=== PATIENT | male | born 1955 | race Caucasian/White ===

== ENCOUNTER 2020-06-01 08:58 | Outpatient (CLI) | payer OTHER, SELFPAY ==
--- NOTE | 2020-06-21 09:34 | WPDHOMESLEEP ---
Sleep Study - Home Unattended Date of Study: 06/01/20 Ordering Provider: Vangie Jackson NP; primary care is Dr. Briseno Interpreting Provider: Linda Riley MD Home Sleep Study Type: Apnea Link Air Height: 1.8 m Weight: 110.677 kg Body Mass Index: 34.0 Neck Circumference (inches): 17 [place]: 2 Reason for Sleep Study Fatigue, poor sleep Sleep History Jeffry Bolton is a 65 year old man with Hypertension. He frequently snores at night and it is loud enough that others complain about it. He occasionally awakens at night with heartburn, belching or coughing. He rarely awakens from sleep feeling short of breath. he occasionally has trouble sleeping with a cold. He rarely wakes up gasping for breath at night. He does not sweat excessively night. He does not notice his heart pounding irregularly night. He occasionally falls asleep during the day never involuntarily, never while driving. He is retired. He does not have loss of muscle tone was strong emotion. He is not bothered during the day due to excessive sleepiness. He does not feel paralyzed on waking or falling asleep nor does he have vivid dreamlike scenes upon awakening or falling asleep. He does not feel afraid to go to sleep. He occasionally has nightmares, occasional remembers his dreams, occasionally has racing thoughts, feelings of sadness depression and anxiety. He rarely has muscular tension. He occasionally notices parts of his body jerking. He rarely kicks at night. He does not have crawling or aching feelings in his legs. He rarely has leg pain at night. He does not have morning jaw pain and does not grind his teeth during sleep. He occasionally is bothered by pain during the day. He is not awakened by pain at night. He occasionally wakes up feeling stiff in the morning with sore achy muscles and pain in the neck and spine. He has short-term memory loss, fatigue and loss of appetite. Normal bedtime is 9-930 p.m. falling asleep within 10-20 minutes, typically waking 3-5 times at night. He will go urinate, try to get back to sleep. This takes a variable amount of time. On the weekend his schedule is the same. He wakes the morning between 6 and 6:30 a.m.. He estimates 8 hours of sleep at night. He sleeps in the spare room because he snores. He does not generally take naps. He rarely awakens feeling refreshed. Habits: Prior tobacco use. Caffeine 2 cups in the morning. No alcohol or recreational drugs. [facility] Past Medical History Medical History (Updated 06/21/20 @ 09:48 by Linda Riley MD) Elevated ferritin Essential hypertension Excessive daytime sleepiness Gout Hereditary hemochromatosis Leukocytosis Low serum cortisol level Low testosterone Prediabetes Vitamin D deficiency Surgical History Surgical History H/O wrist surgery History of knee replacement Hx of cholecystectomy Family History Family History Father Diabetes mellitus Malignant neoplasm of prostate, Onset Age: 85 Mother Family history of cardiovascular disease Family history of malignant neoplasm of breast, Onset Age: 82 Grandparent Family history of cardiovascular disease, Onset Age: 96 Family history of Parkinson's disease, Onset Age: 70 Social History Social History Smoking status: Former smoker Smoking end date: 04/02/72 Alcohol intake: never Medications Home Medications Medication Instructions Recorded Confirmed Type hydrochlorothiazide 25 mg tablet 25 mg PO DAILY #90 tablet 10/22/19 06/08/20 Rx celecoxib 100 mg capsule 100 mg PO DAILY #90 cap 03/22/20 06/08/20 Rx losartan 50 mg tablet 50 mg PO DAILY #90 tablet 03/22/20 06/08/20 Rx colchicine 0.6 mg tablet 1.2 mg PO ONCE #3 tablet 03/23/20 06/08/20 Rx [id number]-vpolbzh PO 03/23/20 06/08/20 History 3,000-9,500-15,000 uni
[2020-06-21 09:48] VITALS: BMI 34.0
== END 2020-06-01 08:59 | disposition home or self-care (01) ==
LOC: ANHCSM 08:58
PROVIDERS: PCP Internal Medicine; Visit Provider Nurse Practitioner
DX: G47.31 Primary central sleep apnea (principal)
CPT/HCPCS: 95806

== ENCOUNTER → 2020-06-30 00:26 | Outpatient (CLI) | payer OTHER, SELFPAY ==
[2020-06-30 16:23] LABS: SARS-CoV-2 RNA PCR Negative
== END ==
PROVIDERS: PCP Internal Medicine; Visit Provider Internal Medicine Critical Care Medicine
DX: Z20.822 Contact with and (suspected) exposure to COVID-19 (principal)
CPT/HCPCS: C9803; U0003; U0005

== ENCOUNTER 2020-07-02 06:57 | Outpatient (CLI) | payer OTHER, SELFPAY ==
--- NOTE | 2020-07-14 14:15 | WPDSLEEPSTUD ---
Sleep Study Ordering Provider: Jeffry Patterson DO Interpreting Physician: Wagner Evans MD Sleep Study Type: CPAP Titration Height: 1.78 m Weight: 111.13 kg Body Mass Index: 35.2 Neck Circumference (inches): 19 [place]: 6 Reason for Sleep Study The patient has prior home sleep study from May of 2020 documenting presence of moderate obstructive sleep apnea. During that study patient had significant number of central apneas accounting for more than half of the apneic events. For this reason the patient was recommended to have CPAP titration study in laboratory. Sleep History Patient reports history of snoring which is disruptive to the family, poor quality of sleep, mild daytime sleepiness. He has comorbid conditions which include hypertension and anxiety /depression. [facility] Past Medical History Medical History (Updated 06/21/20 @ 09:48 by Linda Riley MD) Elevated ferritin Essential hypertension Excessive daytime sleepiness Gout Hereditary hemochromatosis Leukocytosis Low serum cortisol level Low testosterone Prediabetes Vitamin D deficiency Surgical History Surgical History H/O wrist surgery History of knee replacement Hx of cholecystectomy Family History Family History Father Diabetes mellitus Malignant neoplasm of prostate, Onset Age: 85 Mother Family history of cardiovascular disease Family history of malignant neoplasm of breast, Onset Age: 82 Grandparent Family history of cardiovascular disease, Onset Age: 96 Family history of Parkinson's disease, Onset Age: 70 Social History Social History Smoking status: Former smoker Smoking end date: 04/02/72 Alcohol intake: never Medications Home Medications Medication Instructions Recorded Confirmed Type hydrochlorothiazide 25 mg tablet 25 mg PO DAILY #90 tablet 10/22/19 06/08/20 Rx celecoxib 100 mg capsule 100 mg PO DAILY #90 cap 03/22/20 06/08/20 Rx losartan 50 mg tablet 50 mg PO DAILY #90 tablet 03/22/20 06/08/20 Rx colchicine 0.6 mg tablet 1.2 mg PO ONCE #3 tablet 03/23/20 06/08/20 Rx [id number] PO 03/23/20 06/08/20 History 3,000-9,500-15,000 unit capsule,delayed releas atorvastatin 10 mg tablet 10 mg PO .HS #90 tablet 03/25/20 06/08/20 Rx apixaban 5 mg tablet 10 mg PO BID tablet 06/08/20 06/08/20 History Sleep Procedure Patient underwent overnight polysomnographic study which was devoted to CPAP titration. Patient used air fit F -20 fullface mask of medium size. Sleep Architecture Total recording time 487 minutes, total sleep time 419 minutes, sleep efficiency 86.1%. Sleep latency 10 minutes, REM latency 81.5 minutes. Awake after sleep onset 58 minutes, stage N1 6.8%, N2 73.9%, N3 0% and REM sleep 19.3%. Supine sleep 39.1%, supine REM sleep 11.2%. Respiratory Analysis AASM criteria used. Patient had 34 apneas with index of 4.9, 33 central apneas with index 4.7, obstructive apnea 1 with index 0.1. There were 27 hypopneas with index 3.9 . AHI 8.7 Supine events 15.7, non supine events 4.2. Non-REM events 9.4, REM events 5.9. Arousals Total arousals 85 with index 10.5. Spontaneous arousals 58, leg movement arousals 6, snores arousals 5, hypopnea arousals 8, apnea arousals 8. Periodic Limb Movements There were 12 leg movements with index 1.7, 6 were associated with arousals with arousal index 0.7 which is not significant. There were no PLMS. Oximetry Data mean oxygen saturation 92.7%, lowest saturation 84%. SaO2<90%-10.8Min, SaO2<88%-1.3Min. Snoring Profile Snoring was described as mild. Cardiac Profile Normal sinus rhythm with average heart rate 54 beats per minute. Range 35 to 119 beats per minute. EEG Profile Unremarkable EEG. Assessment and Plan Additional Plan Diagnosis -SHANELLE G47.37
[2020-07-14 14:37] VITALS: BMI 35.2
== END 2020-07-02 06:58 | disposition home or self-care (01) ==
LOC: ANHCSM 06:58
PROVIDERS: PCP Internal Medicine; Visit Provider Internal Medicine
DX: G47.37 Central sleep apnea in conditions classified elsewhere (principal); I10 Essential (primary) hypertension; Z79.899 Other long term (current) drug therapy
CPT/HCPCS: 95811